=== PATIENT | female | born 1980 | race Caucasian/White ===

== ENCOUNTER → 2023-11-20 | Outpatient (CLI) | payer BC ==
--- NOTE | 2023-12-22 10:12 | MM ---
Reason for Exam: Screening (asymptomatic). Patient History: Menarche at age 14. First Full-Term at age 24. Maternal grandmother had breast cancer. Last menstrual period: 11/20/2023 Risk Values: Madhuri 5 year model risk: 0.5%. NCI Lifetime model risk: 9.0%. Prior Study Comparison: No prior studies available for comparison. Tissue Density: The breasts are heterogeneously dense, which may obscure small masses. Findings: Analyzed By CAD. There is no suspicious group of microcalcifications or new suspicious mass in either breast. Overall Assessment: Negative, BI-RAD 1 Management: Screening Mammogram of both breasts in 1 year. Examination is dictated during downtime. Patient should continue monthly self-breast exams. A clinical breast exam by your physician is recommended on an annual basis. This exam should not preclude additional follow-up of suspicious palpable abnormalities. Note on Madhuri scores and lifetime risk: 1. A Madhuri score greater than 3% is considered moderate risk. If this is the case, consider specialist referral to assess eligibility for a risk reducing agent. 2. If overall lifetime risk for the development of breast cancer is 20% or higher, the patient may qualify for future screening with alternating mammogram and breast MRI. Electronically signed and approved by: Don Camarena M.D. Radiologis
== END | disposition home or self-care (01) ==
LOC: RADMAMWWP 10:30 → MERGE 10:45
PROVIDERS: ATTEND Family Medicine
DX: Z12.31 Encounter for screening mammogram for malignant neoplasm of breast (principal); R92.333 Mammographic heterogeneous density, bilateral breasts; Z80.3 Family history of malignant neoplasm of breast
CPT/HCPCS: 77067